=== PATIENT | female | born 1945 | race Two or more races ===

== ENCOUNTER 2019-05-22 13:44 | Inpatient (IN) | payer OTHER ==
[~2019-05-22] VITALS: Ht 157.5 cm; Wt 54.0 kg
--- NOTE | 2019-05-22 14:08 | NUR ---
PTE REFIERE CAIDA CON DOLOR EN AREA DE LA PIERNA DERECHA SE MICKEY S/V Y SE UBICA EN AREA DE OBSERVACION
--- NOTE | 2019-05-22 15:02 | NUR ---
SE ORIENTA A PTE SOBRE PROCESO DE VENOPUNCION, ADMINISTRACION DE MED Y ADMINISTRACION DE MED. PTE REFIERE ENTENDER INF PAXTON POR RN DE GEORGINAO. PTE ESPERA POR ESTUDIO A REALIZAR.
--- NOTE | 2019-05-22 15:10 | NUR ---
SE CANALIZA AL PACIENTE CON UN ANGIO #20 EN EL BRAZO YOUNG. LA MISMA ESTA PATENTE Y CHASTITY DE EDEMAS Y ENROJECIMIENTO.
--- NOTE | 2019-05-22 23:19 | NUR ---
SE RECIBE FEMINA ALERTA Y ORIENTADA POR VALENTINE ESFERAS, EN TREVER CON BARANDAS SEGURAS Y ELEVADAS. AREA DE VENOPUNCION CHASTITY DE EDEMA O ENROJECIMIENTO. TIMBRE DE EMERGENCIAS ACCESIBLE. SE MANTIENE EN OBSERVACION POR CAMBIOS.
--- NOTE | 2019-05-23 07:26 | NUR ---
SE RECIBE DE TURNO ANTERIOR. PACIENTE FEMENINA. ALERTA Y ORIENTADA EN VALENTINE ESFERAS. SE OBSERVA CON BUEN PATRON RESPIRATORIO. PIEL TIBIA AL TACTO. CANALIZACION PATENTE, CHASTITY DE EDEMA Y/O ENROJECIMIENTO CON SALINE LOCK COLOCADO. PACIENTE EN ESPERA DE CONSULTA CON DR WALLS.
[2019-05-25] MEDS ORDERED: ALENDRONATE SOD70 MG PO (08:17)
[2019-05-25] MEDS ORDERED: AMLODIPINE BESY10 MG PO (08:17)
[2019-05-28] MEDS ORDERED: ELIQUIS2.5 MG PO (07:34)
[2019-05-28] MEDS ORDERED: PERCOCET 5-3251 EACH PO (07:34)
== END 2019-05-28 13:09 | DRG 464 ==
LOC: ER 13:44 → SEC-K 05-23 09:04 → SURH 05-23 09:04
PROVIDERS: ADMIT Orthopaedic Surgery
PROC: 0SPR0JZ Removal of Synthetic Substitute from Right Hip Joint, Femoral Surface, Open Approach (ICD-10-PCS; principal; 2019-05-23)
PROC: 0JBL0ZZ Excision of Right Upper Leg Subcutaneous Tissue and Fascia, Open Approach (ICD-10-PCS; 2019-05-23)
PROC: 3E10X8Z Irrigation of Skin and Mucous Membranes using Irrigating Substance (ICD-10-PCS; 2019-05-23)
PROC: 0QS636Z Reposition Right Upper Femur with Intramedullary Internal Fixation Device, Percutaneous Approach (ICD-10-PCS; 2019-05-24)
PROC: 30233N1 Transfusion of Nonautologous Red Blood Cells into Peripheral Vein, Percutaneous Approach (ICD-10-PCS; 2019-05-27)
DX: S72.141A Displaced intertrochanteric fracture of right femur, initial encounter for closed fracture (principal); T84.84XA Pain due to internal orthopedic prosthetic devices, implants and grafts, initial encounter; M80.00XA Age-related osteoporosis with current pathological fracture, unspecified site, initial encounter for fracture; D62 Acute posthemorrhagic anemia; S72.391A Other fracture of shaft of right femur, initial encounter for closed fracture; I10 Essential (primary) hypertension; E78.00 Pure hypercholesterolemia, unspecified; F17.200 Nicotine dependence, unspecified, uncomplicated; W18.39XA Other fall on same level, initial encounter; Y93.89 Activity, other specified; Y92.89 Other specified places as the place of occurrence of the external cause; Y99.8 Other external cause status